=== PATIENT | male | born 1975 | race Caucasian/White ===

== ENCOUNTER 2016-05-10 10:44 | Emergency (ER) | payer BC ==
[2016-05-10] MEDS ORDERED: ONDANSETRON 4 MG/2ML 2 ML VIAL ONE ×2 (12:48→12:50)
[2016-05-10] MEDS ORDERED: HYDROMORPHONE HCL 1 MG/ML SYRINGE ONE (12:48)
[2016-05-10] MEDS ORDERED: MULTIVITAMINS 10 ML, THIAMINE HCL 100 MG, FOLIC ACID 2 MG, MAGNESIUM SULFATE 1 G/2 ML 2... IV ONE ×5 (13:00)
[2016-05-10 13:26] LABS: ABSOLUTE NEUTROPHIL COUNT 3.1 K/mm3 (1.8-7.7); BASO % 0.5 % (0.2-1.0); EOS % 0.2 % (0.9-2.9); HEMATOCRIT 45.1 % (32.0-52.0); HEMOGLOBIN 15.8 gm/l (14.0-18.0); IMM NEUT% 0.3 % (0-1); LYMPH # 2.3 (1.0-4.8); LYMPH % 39.6 % (15-45); MEAN CELL VOLUME 95.8 fl (80.0-94.0); MEAN CORPUSCULAR HEMOGLOBIN 33.5 pg (27.0-31.0); MEAN PLATELET VOLUME 8.9 fl (7.4-10.4); MONO # 0.4 (0.0-0.8); NEUT % 53.4 % (43-75); PLATELET COUNT 187 K/mm3 (130-400); RED CELL DISTRIBUTION WIDTH 12.3 % (11.5-14.5)
[2016-05-10 13:38] LABS: ALB/GLOB RATIO 1.4 (>1.0); ALBUMIN 4.3 gm/dL (3.5-5.7); CALCIUM 8.8 mg/dL (8.6-10.3); MAGNESIUM 2.1 mg/dL (1.9-2.7)
--- NOTE | 2016-05-10 14:25 | CT ---
Exam: CT head without contrast COMPARISON: 10/01/2015 INDICATION: Headache, intoxicated. TECHNIQUE: CT examination of the head was obtained without contrast. FINDINGS: There is no acute intracranial hemorrhage. There is no abnormal intra or extra-axial fluid collection. There is no edema, mass effect or midline shift. Ventricles are normal in size. There is no depressed skull fracture. Visualized paranasal sinuses and mastoid air cells are well aerated. IMPRESSION: No acute intracranial abnormality. Report was uploaded to the EMR at 1421 hours 05/10/2016.
--- NOTE | 2016-05-10 14:28 | CT ---
Exam: CT cervical spine without contrast COMPARISON: 10/01/2015 INDICATION: Neck pain, intoxicated. TECHNIQUE: CT examination of the cervical spine was obtained without contrast. FINDINGS: There is gentle reversal of the normal cervical lordosis at C5-6. Atlantoaxial and atlantooccipital relationships are maintained. There is no prevertebral soft tissue swelling. There is multilevel degenerative disc disease most prominent at C3-4 and C5-6. Prominent uncovertebral osteophytes are seen at C5-6 and C6-7. No acute fracture is identified. Limited evaluation of the lung apices demonstrates no pneumothorax. Paravertebral soft tissues are within normal limits. IMPRESSION: No acute osseous abnormality in the cervical spine. Chronic changes as above. Report was uploaded to the EMR at 1424 hours 05/10/2016.
[2016-05-10] MEDS ORDERED: KETOROLAC TROMETHAMINE 15 MG/ML VIAL ONE (14:49)
[2016-05-10 15:05] LABS: SPECIFIC GRAVITY 1.015 (1.001-1.030); URINE APPEARANCE CLEAR; URINE BILIRUBIN NEGATIVE (NEGATIVE); URINE BLOOD NEGATIVE (NEGATIVE); URINE COLOR YELLOW; URINE GLUCOSE (UA) NEGATIVE (NEGATIVE); URINE LEUKOCYTE ESTERASE NEGATIVE (NEGATIVE); URINE NITRITE NEGATIVE (NEGATIVE); URINE PROTEIN NEGATIVE (NEGATIVE); URINE UROBILINOGEN NORMAL (0-1 mg/dl)
[2016-05-10] MEDS ORDERED: SODIUM CHLORIDE 0.9% 1,000 ML ONE (15:08)
[2016-05-10] MEDS ORDERED: ACETAMINOPHEN 500 MG TABLET ONE (15:10)
[2016-05-10 15:21] LABS: AMPHETAMINES/METHAMPHETAMINES NEGATIVE (NEGATIVE); COCAINE NEGATIVE (NEGATIVE); MARIJUANA NEGATIVE (NEGATIVE); METHADONE NEGATIVE (NEGATIVE); OPIATES NEGATIVE (NEGATIVE); TRICYCLIC ANTIDEPRESSANTS NEGATIVE (NEGATIVE)
== END 2016-05-10 16:17 | disposition home or self-care (01) ==
LOC: ED 10:44
DX: F10.129 Alcohol abuse with intoxication, unspecified (principal); E86.0 Dehydration; F17.210 Nicotine dependence, cigarettes, uncomplicated; F17.220 Nicotine dependence, chewing tobacco, uncomplicated; Y90.8 Blood alcohol level of 240 mg/100 ml or more
CPT/HCPCS: 83605; 83690; 82150; 85025; 80305; 80053; 80307; 83735; 81003; 72125; 70450; 96375 ×3; 99284 ×2; 96361; 96365; 96366; J1170; J3475; J3411; J1885; A9270; J2405 ×2; J7030 ×2